=== PATIENT | male | born 1955 | race African-American/Black ===

== ENCOUNTER 2023-01-12 18:00 | Emergency (ER) | payer MEDICARE, MEDICAID ==
[~2023-01-12] VITALS: Ht 172.7 cm; Wt 81.6 kg
[2023-01-12 18:08] VITALS: BP 174/85
== END 2023-01-12 21:40 | disposition home or self-care (01) ==
LOC: ER 18:00
DX: S02.2XXA Fracture of nasal bones, initial encounter for closed fracture (principal); X58.XXXA Exposure to other specified factors, initial encounter; Y93.89 Activity, other specified; Y92.89 Other specified places as the place of occurrence of the external cause; Y99.8 Other external cause status
CPT/HCPCS: 70160; 99283